=== PATIENT | female | born 2000 | race Caucasian/White ===

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

== ENCOUNTER 2022-08-29 22:27 | Emergency (ER) | payer OTHER ==
[~2022-08-29] VITALS: Ht 172.7 cm; Wt 122.5 kg
[2022-08-29] MEDS ORDERED: MIRTAZAPINE15 M2 PO (22:36)
[2022-08-29] MEDS ORDERED: ESCITALOPRAM OX20 MG PO (22:36)
== END 2022-08-29 23:48 | disposition left against medical advice (07) ==
LOC: ED 22:27
DX: R05.9 Cough, unspecified (principal); K12.1 Other forms of stomatitis; Z88.0 Allergy status to penicillin; Z88.1 Allergy status to other antibiotic agents; Z88.8 Allergy status to other drugs, medicaments and biological substances; Z79.899 Other long term (current) drug therapy

== ENCOUNTER 2024-05-16 23:47 | Emergency (ER) | payer OTHER ==
[~2024-05-16 23:47] MED LIST changes: +ESCITALOPRAM OX20 MG PO; +MIRTAZAPINE15 M2 PO
[2024-05-17] MEDS ORDERED: SEPTDS PO (00:23)
== END 2024-05-17 00:38 | disposition home or self-care (01) ==
LOC: ED 23:47
DX: L03.113 Cellulitis of right upper limb (principal); F32.A Depression, unspecified; Z88.0 Allergy status to penicillin; Z88.1 Allergy status to other antibiotic agents; Z88.8 Allergy status to other drugs, medicaments and biological substances

== ENCOUNTER 2024-12-27 20:41 | Emergency (ER) | payer OTHER ==
[~2024-12-27] VITALS: Ht 170.1 cm; Wt 127.5 kg
[~2024-12-27 20:41] MED LIST changes: +SEPTDS PO
[2024-12-27] MEDS ORDERED: Ketorolac Tromethamine 15 MG/ML VIAL IV ONE (21:00)
[2024-12-27] MEDS ORDERED: Metoclopramide Hydrochloride 10 MG/2 ML VIAL IV ONE (21:00)
[2024-12-27] MEDS ORDERED: SODIUM CHLORIDE 0.9% 1,000 ML IV ONE (21:00)
[2024-12-27] MEDS ORDERED: diphenhydrAMINE hydrochloride 50 MG/ML VIAL IV ONE (21:00)
[2024-12-27] MEDS ORDERED: ACETAMINOPHEN 325 MG TAB PO ONE (21:05)
[2024-12-27 21:33] LABS: BASO % 0.3 % (0.0-1.0); EOS # 0.1 10*3/uL (0.0-0.4); HEMATOCRIT 43.1 % (37.0-47.0); MEAN CELL VOLUME 87.6 fl (81.0-99.0); MEAN PLATELET VOLUME 9.8 fl (9.6-12.3); MONO # 0.5 10*3/uL (0.1-1.0); MONO % 5.4 % (3.0-9.0); NEUT # 5.4 10*3/uL (2.3-7.9); NEUT % 58.9 % (47.0-73.0); PLATELET COUNT AUTOMATED 265 10*3/uL (130-400); RED BLOOD COUNT 4.92 10*6/uL (4.10-5.10); RED CELL DISTRI WIDTH 12.6 % (0-14.5); WHITE BLOOD COUNT 9.2 10*3/uL (4.8-10.8)
[2024-12-27 22:06] LABS: BUN 20 mg/dl (9-23); CHLORIDE 104 mmol/L (98-107); POTASSIUM 4.1 mmol/L (3.4-5.1)
== END 2024-12-27 22:33 | disposition home or self-care (01) ==
LOC: ED 20:41
PROVIDERS: Nurse Practitioner Family
DX: F41.9 Anxiety disorder, unspecified (principal); R51.9 Headache, unspecified; R20.2 Paresthesia of skin; Z88.0 Allergy status to penicillin; Z88.1 Allergy status to other antibiotic agents; Z88.8 Allergy status to other drugs, medicaments and biological substances; Z79.899 Other long term (current) drug therapy; Z88.2 Allergy status to sulfonamides